=== PATIENT | male | born 2000 | race Caucasian/White ===

== ENCOUNTER 2025-02-03 10:31 | Emergency (ER) | payer BC, SELFPAY ==
[2025-02-03 10:34] VITALS: BP 120/79
[2025-02-03 10:39] VITALS: BP 120/79
[2025-02-03 10:46] LABS: Hematocrit 43.5 % (39.0-52.0); Hemoglobin 14.5 g/dL (13.0-18.0); Mean Corp Hgb Conc. 33.3 g/dL (33.0-37.0); Mean Corpuscular Volume 88.4 fL (80.0-94.0); Nucleated Red Blood Cells % 0 % (-); Platelet Count 227 10^3/uL (130-400); Red Cell Dist. Width 12.6 % (11.5-14.5)
[2025-02-03 10:58] LABS: ALT (SGPT) 33 U/L (0-50); AST (SGOT) 29 U/L (17-59); Albumin 4.5 g/dl (3.5-5.0); Alkaline Phosphatase 52 U/L (38-126); Blood Urea Nitrogen 18 mg/dl (9-20); Calcium 9.6 mg/dl (8.4-10.2); Carbon Dioxide 27 mmol/L (22-30); Chloride 106 mmol/L (98-107); Estimated Creatinine Clearance 123 ml/min; Glucose 131 mg/dl (70-99); Potassium 4.0 mmol/L (3.5-5.1); Sodium 138 mmol/L (135-145); Total Protein 7.6 g/dl (6.3-8.2); eGFR > 60.00
--- NOTE | 2025-02-03 10:59 | ED.GENMED ---
History of Present Illness
General
Chief Complaint: Fainting/Passed Out
Time Seen by Provider: 02/03/25 10:59
History of Present Illness
History of Present Illness:
FOCUSED PAST MEDICAL HISTORY
- The patient has no significant past medical history
REVIEW OF OLD RECORDS
- The patient had a CAT scan of the brain that was unremarkable 2020
Note:
CHIEF COMPLAINT(S)
Dizziness.
HISTORY OF PRESENT ILLNESS
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 He presents with dizziness that occurred approximately 30 minutes before arrival in the emergency department. The patient reported he was already standing
at a computer when he experienced dizziness, prompting him to sit down. This episode was accompanied by nausea, leading to vomiting. He denies any current nausea. The patient described the dizziness with a sensation of vertigo, stating, 'I
definitely felt like there was movement.' There is a history of a single dizziness episode in high school, which resulted in a fall in the shower and another instance in a previous job involving similar vertigo symptoms that resolved spontaneously.
No episodes have involved syncope. He denies chest pain or shortness of breath during these episodes.
External records reviewed, including blood work, reveal a consistently elevated bilirubin level, which the attending physician attributes to [place] syndrome, a condition known to cause benign hyperbilirubinemia. The elevational abnormality has
been present since at least 2013 and is unlikely related to the current symptoms.
PHYSICAL EXAM
- General: Well appearing in no distress
- HEENT: Moist oral mucosa, [place]-Hallpike negative
- Cardiovascular: No murmurs, normal heart rate, regular rhythm, No chest wall tenderness
- Pulmonary: No respiratory distress, breath sounds are clear and equal
- Abdomen: Soft with no peritoneal signs, no tenderness
- Neurologic: Excellent strength all extremities, no coordination deficits, normal finger-nose testing
- Psychiatric: Appropriate mental status, normal insight and judgement
- Extremities: Nontender, no edema, moves all extremities equally
- Skin: No rash, no lesions
- Neurological: The [id number]-[id number] test is normal, indicating intact coordination.
- Monitoring: EKG monitoring showed normal sinus rhythm with no significant arrhythmias despite artifact noise in the system. Vital signs reviewed.
ELECTROCARDIOGRAM (EKG)
- My independent EKG interpretation is normal sinus rhythm with a lot of artifact due to respiratory motion. No arrhythmias were detected.
INDEPENDENT REVIEW OF LABS AND INTERPRETATION OF TESTS
- My independent review of the complete blood count shows normal white blood cell and hemoglobin levels.
- My independent review of the chemistry panel shows a slightly elevated total bilirubin, consistent with previous records dating back to 2013, suggestive of [place] syndrome.
PLAN
Administer intravenous fluids to address possible dehydration and continue monitoring for any further episodes of dizziness. Reassess the patient after fluid administration. Educate the patient on the likelihood of benign and self-resolving vertigo
episodes but recommend a follow-up with a primary care provider for further evaluation if episodes persist.
MEDICATION RECONCILIATION
A bag of intravenous fluids was administered.
DIFFERENTIAL DIAGNOSIS
- The Differential Diagnosis includes, in no particular order and is not limited to:
- Benign Paroxysmal Positional Vertigo (BPPV)
- Menieres Disease
- Vestibular Neuritis
- Labyrinthitis
- Migraine-associated Vertigo
- Dehydration-induced Dizziness
- Orthostatic Hypotension
- Anxiety-related Dizziness
- Cardiac Arrhythmias
- Vestibular Migraine
MEDICAL DECISION MAKING
- Number and Complexity of Problems Addressed: Acute vertigo and underlying history suggestive of benign vertigo syndrome; potential dehydration.
- Data:
- Category 1:
- Tests and documents reviewed: Complete blood count and chemistry panel show pre-existing mild hyperbilirubinemia attributed to [place] syndrome.
- Category 2:
- My independent interpretation of EKG indicates normal sinus rhythm with no acute findings.
- Risk: Consideration of admission was evaluated but deemed unnecessary owing to reassurance from workup findings, stable examination, and symptom improvement after IV fluids. The patient was educated on the condition.
DIAGNOSIS
- Dizziness (R42)
- Suspected Benign Paroxysmal Positional Vertigo (H81.11)
- Dehydration (E86.0)
- Gilbert�s syndrome (E80.4)
EKG
- Sinus 66, normal axis, sinus rhythm remaining noted
LABS
- Today, CBC normal, mild T. bili elevation at 2.1 and was elevated in 2013 at 1.6 and both times had normal transaminases and alk phos
UPDATE
-SUMMARY OF ENCOUNTER
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 The episode included a sensation of vertigo and was accompanied by nausea leading
to vomiting. The patient described a history of similar episodes, though not frequent. An independent examination did not reveal any acute life-threatening findings, and the patients labs showed a consistent slightly elevated bilirubin level,
attributed to Gilbert�s syndrome. Initial management included the administration of intravenous fluids to address possible dehydration. Following this treatment, the patient reported feeling significantly better. Despite comprehensive evaluation,
the exact cause of the dizziness remains undetermined, though dehydration was considered a contributing factor.
DISPOSITION
Discharge.
ASSESSMENT
The patient experienced dizziness, likely benign in nature, with suspected dehydration as a possible contributing factor. [place] syndrome was identified but not considered related to the current dizziness.
EMERGENCY TREATMENTS ADMINISTERED
Intravenous fluids were administered to address possible dehydration.
REASSESSMENT
The patient reported feeling much better after receiving intravenous fluids.
PLAN
Discharge the patient with education on benign vertigo and dehydration management. Recommend follow-up with a primary care provider if dizziness episodes persist.
INDEPENDENT REVIEW OF LABS AND INTERPRETATION OF TESTS
- My independent review of the complete blood count shows normal white blood cell and hemoglobin levels.
- My independent review of the chemistry panel shows a slightly elevated total bilirubin, consistent with previous records and suggestive of Gilbert�s syndrome.
PATIENT EDUCATION AND COUNSELING
The patient was educated on the likelihood of benign and self-resolving vertigo episodes. Advised to maintain hydration and seek further evaluation if episodes persist.
MEDICATION RECONCILIATION
Intravenous fluids were administered during this visit.
MEDICAL DECISION MAKING
- Number and Complexity of Problems Addressed: Acute vertigo and underlying history suggestive of benign vertigo syndrome; potential dehydration.
- Data:
- Category 1:
- Tests and documents reviewed: Complete blood count and chemistry panel, EKG interpreted showing normal sinus rhythm.
- Category 2:
- My independent interpretation of EKG indicates normal sinus rhythm with no acute findings.
- Risk: Consideration of Admission/Observation: Escalation of care including admission/observation was considered given the complexity and risk of the patients presenting complaint, exam findings, and/or their underlying comorbidities. However,
ultimately I feel the patient is safe for outpatient management with close follow-up. Reasoning: Work-up reassuring, does not reveal any acute life/organ threatening processes, patients symptoms well controlled upon reevaluation, reexamination is
reassuring, vitals are stable, patient agreeable with discharge, reliable for follow-up.
DIAGNOSIS
- Dizziness (R42)
- Suspected Benign Paroxysmal Positional Vertigo (H81.11)
- Dehydration (E86.0)
- Gilbert�s syndrome (E80.4)
On reassessment at 12:30 PM, after patient was given IV fluid, the patient feels improved
Past History
Past History
ED Past Medical History: None
Social History
Tobacco: Non-smoker
Personal: Single
Living: with family
Employment: Employed ([employer])
Phy Exam
Physical Exam
Physical Exam:
See HPI
Course
Orders/Labs/Results
Orders:
Orders
02/03/25 10:37
Electrocardiogram (*1) Urgent
Reason for Study: Chest Pain
EKG- Treatment ONCE
02/03/25 10:38
Complete Blood Count/With Diff Urgent
Comprehensive Metabolic Panel Urgent
02/03/25 11:09
0.9% Sodium Chloride 1000 ml [Nss] 1,000 ml IV BOLUS
Abnormal Lab Results
02/03/25
10:38
Neutrophils % 40.7 L %
(42.2-75.2)
Glucose 131 H mg/dl
(70-99)
Total Bilirubin 2.1 H mg/dl
(0.2-1.3)
02/03/25 10:38
02/03/25 10:38
Vital Signs
Initial and Last Documented VS:
Initial Vital Signs
Temp Pulse Resp BP Pulse Ox
36.7 C 54 20 120/79 96
02/03/25 10:34 02/03/25 10:34 02/03/25 10:34 02/03/25 10:34 02/03/25 10:34
Last Documented Vital Signs
Temp Pulse Resp BP Pulse Ox
36.7 C 61 16 127/72 100
02/03/25 10:34 02/03/25 12:00 02/03/25 12:00 02/03/25 12:00 02/03/25 12:00
*Pulse Oximetry
SaO2: 96
Oxygen Mode of Delivery: Room air
Patient hypoxic: no
*Critical Care Note
Total Time (30-74mins, 75-104mins- exclusive of procedures): Not Applicable
ED Attending Note
-
Portions of this chart may have been created with voice recognition software.� Occasional wrong word or��sound alike� substitutions may have occurred due to the inherent limitations of voice recognition software.
Discharge Plan
Departure
Prescriptions:
No Action
cephalexin [Keflex] 500 MG capsule
500 mg PO BID Qty: 14 0RF
Referrals:
Robin Cook DO [Family Provider, Internal Medicine]
Interventions
Interventions:
*Risk Screen - Suicide Last Done: 02/03/25 10:34
*General Assessment Last Done: 02/03/25 10:34
*Neglect/Abuse Screening Last Done: 02/03/25 10:34
*ED COVID-19 Vaccine History Last Done: 02/03/25 10:40
ED- Cardiac Assessment Last Done: 02/03/25 10:40
ED- Neurological Assessment Last Done: 02/03/25 10:40
Discharge Date and Time
Print Language: LATVIAN
[2025-02-03 11:00] VITALS: BP 121/78
[2025-02-03] MEDS: NSS 1000 IV (11:23)
[2025-02-03 12:00] VITALS: BP 127/72
== END 2025-02-03 12:58 | disposition home or self-care (01) ==
LOC: EMR 10:31
PROVIDERS: EMERGENCY PHYSICIAN Emergency Medicine; FAMILY PHYSICIAN Internal Medicine
DX: R55 Syncope and collapse (principal); E80.4 Gilbert syndrome
CPT/HCPCS: 99284; 96360; 80053; 85025; 93005